=== PATIENT | female | born 1940 | race Caucasian/White ===

== ENCOUNTER 2017-03-23 17:40 | Emergency (ER) | payer BC ==
[~2017-03-23] VITALS: Ht 157.5 cm; Wt 110.0 kg
[2017-03-23 17:44] VITALS: Ht 157.5 cm; Wt 110.0 kg
[2017-03-23 20:10] VITALS: TEMP 97.6
[2017-03-23 20:26] LABS: BASOPHIL # 0.1 10^3/ul (0.0-0.1); EOSINOPHILS # 0.1 10^3/ul (0.0-0.5); HEMATOCRIT 38.3 % (37.0-47.0); HEMOGLOBIN 12.4 g/dl (12.0-16.0); LYMPHOCYTES # 1.9 10^3/ul (0.8-2.9); LYMPHOCYTES % 19.9 % (15.0-51.0); MEAN CORPUSCULAR HEMOGLOBIN 25.8 pg (29.0-33.0); MEAN CORPUSCULAR HGB CONC 32.4 g/dl (32.0-37.0); MEAN CORPUSCULAR VOLUME 79.6 fl (82.0-101.0); MEAN PLATELET VOLUME 9.8 fl (7.4-10.4); MONOCYTE # 0.7 10^3/ul (0.3-0.9); MONOCYTES % 7.1 % (0.0-11.0); NEUTROPHILS % 70.8 % (39.0-77.0); PLATELET COUNT 239 10^3/UL (140-415); RED BLOOD COUNT 4.81 10^6/ul (4.20-5.40); RED CELL DISTRIBUTION WIDTH 15.7 % (11.5-14.5); WHITE BLOOD COUNT 9.7 10^3/ul (4.8-10.8)
[2017-03-23 20:54] LABS: ANION GAP 21 (8-16); BLOOD UREA NITROGEN 37 mg/dl (7-20); CALCIUM 10.1 mg/dl (8.4-10.2); CARBON DIOXIDE 28 mmol/L (21-31); CHLORIDE 96 mmol/L (97-110); CREATININE 1.32 mg/dl (0.44-1.00); GLUCOSE 97 mg/dl (70-220); MAGNESIUM 2.1 mg/dl (1.7-2.5); POTASSIUM 4.8 mmol/L (3.5-5.1); SODIUM 140 mmol/L (135-144)
--- NOTE | 2017-03-23 21:21 | RADRPT ---
PROCEDURE: XR Chest AP portable CLINICAL INDICATION: Chest pain TECHNIQUE: An AP portable radiograph of the chest was submitted. COMPARISON: None. FINDINGS: Support Hardware: None Cardiovascular: The heart is normal in size, the pulmonary vasculature is upper normal, and the aort a appears mildly tortuous. Lung Roberson: The lung roberson appear clear with no nodule, alveolar infiltrate, or interstitial promi nence evident. Pleural Spaces: No pneumothorax or pleural effusion is identified. Osseous Structures: There appears to be a dislocation at the right glenohumeral joint and increased sclerosis involving the medial right humeral head. Soft Tissues: The soft tissues appear generous. IMPRESSION: 1. Aortic tortuosity. 2. The lung roberson and pleural spaces are clear. 3. Right shoulder dislocation with sclerosis involving the medial right humeral head. This could b e confirmed by means of a right shoulder series if clinically indicated. Physician Kera Date Time Electronically viewed and signed by Physician Kear on 03/23/2017 21:21 /
[2017-03-23 21:22] LABS: TROPONIN-I < 0.012 ng/ml (0.00-0.12)
[2017-03-23] MEDS ORDERED: FURO20TA3 PO (21:26)
[2017-03-23] MEDS ORDERED: TRAM-40 PO (21:27)
[2017-03-23] MEDS ORDERED: NAPR-688 PO (21:27)
[2017-03-23] MEDS ORDERED: LOSA100T7 PO (21:28)
[2017-03-23] MEDS ORDERED: PANT40TA4 PO (21:28)
--- NOTE | 2017-03-23 22:43 | ERD ---
ER Documentation Chief Complaint Date/Time DATE: 03/23/17 TIME: 22:41 Chief Complaint here for eval of irregular heart beat found in physical , asymtomatic HPI This is a 76-year-old female who presents from her primary care physician's office for evaluation of palpitations and possible arrhythmia. The patient states that she was in her doctor's office today for routine checkup and her doctor noticed an irregular heartbeat and sent her to the emergency room for evaluation. The patient states that she feels asymptomatic. She denies any palpitations chest pain or shortness of breath. She states no fevers or chills. No exertional symptoms of diaphoresis. ROS All systems reviewed and are negative except as per history of present illness. Medications Home Meds Reported Medications Losartan Potassium* (Losartan Potassium*) 100 Mg Tablet, 100 MG PO DAILY, TAB 03/23/17 Pantoprazole* (Pantoprazole*) 40 Mg Tablet.dr, 40 MG PO DAILY, TAB 03/23/17 Tramadol Hcl* (Ultram*) 50 Mg Tablet, 50 MG PO Q6H Y for PAIN, TAB 03/23/17 Naproxen* (Naproxen*) 500 Mg Tablet, 500 MG PO BID, TAB 03/23/17 Furosemide* (Furosemide*) 20 Mg Tablet, 20 MG PO DAILY, #60 TAB 03/23/17 Allergies Allergies: Coded Allergies: Sulfa (Sulfonamide Antibiotics) (Unverified Allergy, Unknown, 03/23/17) meperidine (Unverified Allergy, Unknown, 03/23/17) oxycodone (Unverified Allergy, Unknown, 03/23/17) PMhx/Soc History of Surgery: Yes (TONSILS, TUMOR UTERUS, SINUS, BONE SPUR FOOT) Anesthesia Reaction: No Hx Neurological Disorder: No Hx Respiratory Disorders: No Hx Cardiac Disorders: Yes (HYPERTENSION) Hx Psychiatric Problems: No Hx Miscellaneous Medical Probl: Yes (SHOWING PAC ON MONITOR) Hx Substance Use: No Hx Tobacco Use: Yes (QUIT 35 YEARS ) Smoking Status: Former smoker FmHx Family History: No diabetes Physical Exam Vitals Vital Signs Date Time Temp Pulse Resp B/P Pulse Ox O2 Delivery O2 Flow Rate FiO2 03/23/17 20:10 97.6 76 14 142/75 99 Room Air 03/23/17 17:44 97.9 78 20 146/67 99 Physical Exam General: Well developed, well nourished, no acute distress Head: Normocephalic, atraumatic. Eyes: Pupils equally reactive, EOM intact ENT: Moist mucous membranes Neck: Supple, no lymphadenopathy Respiratory: Lungs clear bilaterally, no distress Cardiovascular: RRR, no murmurs, rubs, or gallops Abdominal: Soft, non-tender, non-distended, no peritoneal signs : Deferred MSK: No edema, no unilateral swelling, 5/5 strength Neurologic: Alert and oriented, moving all extremities, normal speech, no focal weakness, no cerebellar signs Skin: No rash Psych: Normal mood Result Diagram: 03/23/17201403/23/172014 Results 24 hrs Laboratory Tests Test 03/23/17 20:15 White Blood Count 9.710^3/ul Red Blood Count 4.8110^6/ul Hemoglobin 12.4g/dl Hematocrit 38.3% Mean Corpuscular Volume 79.6fl Mean Corpuscular Hemoglobin 25.8pg Mean Corpuscular Hemoglobin Concent 32.4g/dl Red Cell Distribution Width 15.7% Platelet Count 62813^3/UL Mean Platelet Volume 9.8fl Neutrophils % 70.8% Lymphocytes % 19.9% Monocytes % 7.1% Eosinophils % 1.0% Basophils % 1.0% Nucleated Red Blood Cells % 0.0/100WBC Neutrophils # (Manual) 710^3/ul Lymphocytes # 1.910^3/ul Monocytes # 0.710^3/ul Eosinophils # 0.110^3/ul Basophils # 0.110^3/ul Nucleated Red Blood Cells # 0.010^3/ul Sodium Level 140mmol/L Potassium Level 4.8mmol/L Chloride Level 96mmol/L Carbon Dioxide Level 28mmol/L Anion Gap 21 Blood Urea Nitrogen 37mg/dl Creatinine 1.32mg/dl Glucose Level 97mg/dl Calcium Level 10.1mg/dl Magnesium Level 2.1mg/dl Troponin I < 0.012ng/ml Procedures/MDM EKG, MONITORS, & DIAGNOSTIC IMAGING: Rhythm strip: Rate/Rhythm: Normal Sinus Rhythm with premature atrial contraction Impression: No evidence of ischemia or arrhythmia EKG: I reviewed and interpreted a 12-lead EKG. Rhythm: Normal sinus rhythm with premature atrial contractions Ectopy: None Intervals: No abnormalities, normal QRS and QTC ST segments: No elevations or depressions T waves: No contiguous inversions LAB INTERPRETATION: Negative troponin MEDICAL DECISION MAKING: The patient presents for asymptomatic evaluation of potential arrhythmia. The patient is unsure what her DrBooker saw in the office. She did not arrive with an EKG. The patient here has premature atrial contractions otherwise unremarkable studies. She denies any exertional symptoms palpitations or dyspnea on exertion. The patient has no murmurs. The patient does have premature atrial contractions that are nonspecific and asymptomatic. ER COURSE: I was able to speak to the patient's referring physician. She states that she may have seen PACs as well she is not sure. She states the patient was generally weak and may have had slightly low blood pressure. I discussed with the patient has had normal blood pressures and asymptomatic here in the emergency room that her laboratory testing was unremarkable. The patient's primary care physician feels comfortable and will follow as an outpatient. I kept the patient and/or family informed of laboratory and diagnostic imaging results throughout the emergency room course. DISPOSITION PLAN: We discussed follow up with the patient's primary care doctor within 24 to 48 hours as needed. We also discussed return to the emergency room for worsening symptoms or worsening condition. Outpatient referral: [None required] Discharge Medications: None required Departure Diagnosis: Primary Impression: PAC (premature atrial contraction) Condition: Stable Patient Instructions: Palpitations Additional Instructions: Call your primary care doctor TOMORROW for an appointment during the next 1 WEEK.Tell the medical unit secretary that you were referred from this facility.See the doctor sooner or return here if your condition worsens before your appointment time. JEWELS YADAV MD Mar 23, 2017 22:43
[2017-03-23 23:00] VITALS: BP 135/71; PULSE 81; RESP 15
== END 2017-03-23 20:10 | disposition home or self-care (01) ==
LOC: E/R 17:40
DX: I49.1 Atrial premature depolarization (principal); I10 Essential (primary) hypertension; Z87.891 Personal history of nicotine dependence
CPT/HCPCS: 36415; 71010; 80048; 83735; 84484; 85025; 93005

== ENCOUNTER 2018-06-06 14:56 | Emergency (ER) | END 2018-06-06 18:20 | disposition home or self-care (01) ==